=== PATIENT | male | born 1965 | race Caucasian/White ===

== ENCOUNTER 2025-08-09 12:36 | Outpatient (CLI) | payer MEDICAID | END 2025-08-09 12:37 | disposition home or self-care (01) | LOC: CSHWCC 12:36 | PROVIDERS: ATTEND Nurse Practitioner Family | DX: L89.890 Pressure ulcer of other site, unstageable (principal); G60.0 Hereditary motor and sensory neuropathy | CPT/HCPCS: 11042; 99214; G0463 ==

== ENCOUNTER 2025-08-23 13:58 | Outpatient (CLI) | payer MEDICAID | END 2025-08-23 13:59 | disposition home or self-care (01) | LOC: CSHWCC 13:58 | PROVIDERS: ATTEND Nurse Practitioner Family | DX: L89.890 Pressure ulcer of other site, unstageable (principal); G60.0 Hereditary motor and sensory neuropathy | CPT/HCPCS: 97597 ==

== ENCOUNTER 2025-08-30 14:01 | Outpatient (CLI) | payer MEDICAID | END 2025-08-30 14:02 | disposition home or self-care (01) | LOC: CSHWCC 14:01 | PROVIDERS: ATTEND Nurse Practitioner Family | DX: L89.890 Pressure ulcer of other site, unstageable (principal); G60.0 Hereditary motor and sensory neuropathy | CPT/HCPCS: 11042; 99213; G0463 ==

== ENCOUNTER 2025-09-06 14:30 | Outpatient (CLI) | payer MEDICAID | END 2025-09-06 14:31 | disposition home or self-care (01) | LOC: CSHWCC 14:30 | PROVIDERS: ATTEND Nurse Practitioner Family | DX: L89.893 Pressure ulcer of other site, stage 3 (principal); G60.0 Hereditary motor and sensory neuropathy | CPT/HCPCS: 11042; 36416 ==

== ENCOUNTER 2025-09-13 14:38 | Outpatient (CLI) | payer MEDICAID | END 2025-09-13 14:39 | disposition home or self-care (01) | LOC: CSHWCC 14:38 | PROVIDERS: ATTEND Nurse Practitioner Family | DX: L89.893 Pressure ulcer of other site, stage 3 (principal); G60.0 Hereditary motor and sensory neuropathy | CPT/HCPCS: 99213; G0463 ==